=== PATIENT | male | born 1940 | race Caucasian/White ===

== ENCOUNTER 2017-09-17 12:59 | Emergency (ER) | payer MEDICARE ==
[~2017-09-17] VITALS: Ht 175.3 cm; Wt 80.0 kg
[2017-09-17 13:07] VITALS: BP 160/72; PULSE 55; RESP 16; TEMP 97.6; O2SAT 99
--- NOTE | 2017-09-17 13:58 | PD ---
HPI Chief Complaint: Complaint Time Seen by Provider: 13:18 Travel History International Travel<30 days: No Contact w/Intl Traveler<30days: No Traveled to known affect area: No History of Present Illness HPI This patient had lithotripsy 2 days ago. He had his Kirk catheter removed yesterday. Today he is having difficulty urinating. He is able to dribble out small amounts. He is requesting to be catheterized. He denies fever or injury. He is not having acute flank pain now. He is ambulatory. Symptom severity is moderate. Duration 1 day. No alleviating factors. Symptoms exacerbated by recent stone disease PFSH Past Medical History Cardiovascular Problems: Yes Cerebrovascular Accident: Yes Respiratory: Yes Social History Alcohol Use: No Tobacco Use: No Substance Use: No Review of Systems General / Constitutional: No: Fever Eyes: No: Visual changes HENT: No: Headaches Cardiovascular: No: Chest Pain or Discomfort Respiratory: No: Shortness of Breath Gastrointestinal: No: Abdominal Pain Genitourinary: Positive: Decreased Urinary Output, Hesitancy, Dribbling, No: Dysuria Musculoskeletal: No: Pain Skin: No Rash Neurologic: No: Weakness Psychiatric: No: Depression Endocrine: No: Polydipsia Hematologic/Lymphatic: No: Easy Bruising Physical Exam Narrative GENERAL: Well-nourished, well-developed patient in no apparent distress. SKIN: Focused skin assessment reveals no rash and nodules. Skin is Warm and dry. HEAD: Atraumatic. Normocephalic. EYES: Pupils equal and round. No scleral icterus. No injection or drainage. ENT: No nasal bleeding or discharge. Mucous membranes pink and moist. NECK: Trachea midline. No JVD. CARDIOVASCULAR: Regular rate and rhythm. No murmur appreciated. RESPIRATORY: No accessory muscle use. Clear to auscultation. Breath sounds equal bilaterally. GASTROINTESTINAL: Abdomen soft, non-tender, nondistended. Hepatic and splenic margins not palpable. MUSCULOSKELETAL: No obvious deformities. No clubbing. No cyanosis. No edema. NEUROLOGICAL: Awake and alert. No obvious cranial nerve deficits. Motor grossly within normal limits. Normal speech. PSYCHIATRIC: Appropriate mood and affect; insight and judgment normal. There is a bit of suprapubic tenderness but not overt distention Data Data Last Documented VS Vital Signs Date Time Temp Pulse Resp B/P (MAP) Pulse Ox O2 Delivery O2 Flow Rate FiO2 09/17/17 13:07 97.6 55 16 160/72 (101) 99 Orders Orders Urinalysis - C+S If Indicated (09/17/17 13:52) Urinary Catheter Insert/Apply (09/17/17 13:52) Urine Culture (09/17/17 14:15) Labs Laboratory Tests Test 09/17/17 14:15 Urine Color YELLOW Urine Turbidity CLEAR Urine pH 6.5 Urine Specific [place] 1.015 Urine Protein TRACE mg/dL Urine Glucose (UA) NEG mg/dL Urine Ketones NEG mg/dL Urine Occult Blood MOD Urine Nitrite NEG Urine Bilirubin NEG Urine Urobilinogen LESS THAN 2.0 MG/DL Urine Leukocyte Esterase SMALL Urine RBC 77 /hpf Urine WBC 14 /hpf Urine Squamous Epithelial Cells <1 /hpf Urine Mucus FEW /lpf Microscopic Urinalysis Comment CULTURE INDICATED MDM Medical Decision Making Medical Screen Exam Complete: Yes Emergency Medical Condition: Yes Medical Record Reviewed: Yes Differential Diagnosis Urinary retention, urethral stricture, retained stone disease Narrative Course I have reviewed the patient's electronic medical record. Kirk catheter placed. Bladder is drained out. Urinalysis has only 14 white cells and hematuria as expected Patient drained out 800 cc of clear yellow urine and instantly felt relief We switched him to a leg bag and he will go home with that. He will follow-up with his urologist. Diagnosis Primary Impression: Acute urinary retention Additional Instructions: Follow-up with urologist Med/Other Pt SpecificInfo: Other Disposition: 01 DISCHARGE HOME Condition: Stable Je Summers MD Sep 17, 2017 13:58
[2017-09-17 14:31] LABS: BILIRUBIN, URINE NEG (NEG); BLOOD, URINE MOD (NEG); GLUCOSE,URINE NEG (NEG); KETONE, URINE NEG (NEG); MUCUS URINE FEW /lpf (OCC); NITRITE,URINE NEG (NEG); PH, URINE 6.5 (5.0-8.5); SQUAMOUS EPITHELIAL CELL URINE <1 /hpf (0-5); URINE COLOR YELLOW (YELLW/STRAW); URINE LEUKOCYTE ESTERASE SMALL (NEG)
== END 2017-09-17 16:39 | disposition home or self-care (01) ==
LOC: NEPD 12:59
DX: R33.9 Retention of urine, unspecified (principal); Z86.73 Personal history of transient ischemic attack (TIA), and cerebral infarction without residual deficits; Z98.890 Other specified postprocedural states
CPT/HCPCS: 51702; 81001; 87086